=== PATIENT | female | born 1995 | race Caucasian/White ===

== ENCOUNTER 2016-08-07 20:45 | Emergency (ER) | payer BC ==
[~2016-08-07] VITALS: Ht 162.6 cm; Wt 69.9 kg
[~2016-08-07 20:45] MED LIST: AMPH15CA7 PO; AMPH1TAB58 PO; ONDA4TAB10 SL; TRAM-10 PO
[2016-08-07 21:16] VITALS: TEMP 36.7; Ht 162.6 cm; Wt 69.9 kg
[2016-08-07] MEDS ORDERED: ALBUT/IPRATROP 3MG/0.5MG NEB 3 ML VIAL INH STA (21:59)
[2016-08-07] MEDS ORDERED: CETIRIZINE HCL 10 MG TAB PO ONE (22:00)
[2016-08-07] MEDS ORDERED: ALBUTEROL HFA 8 GM INHALER INH ONE (22:00)
[2016-08-07 22:16] VITALS: O2SAT 99
[2016-08-07] MEDS ORDERED: PSEU30TA20 PO (22:18)
[2016-08-07] MEDS ORDERED: DOXY1TAB6 PO (22:18)
[2016-08-07] MEDS ORDERED: IBUP-1050 PO (22:18)
[2016-08-07] MEDS ORDERED: IUD'IUD INT UTER (22:18)
[2016-08-07] MEDS ORDERED: AMPH10TA2 PO (22:20)
[2016-08-07] MEDS ORDERED: CETI10CA PO (23:04)
[2016-08-07] MEDS ORDERED: PRED50TA PO (23:04)
[2016-08-07 23:09] VITALS: BP 131/82; PULSE 78; O2SAT 100
--- NOTE | 2016-08-08 03:20 | EMERGENCY ROOM VISIT NOTE ---
History First contact with patient: 21:40 Chief Complaint: COUGH Stated Complaint: WHEEZING,DIZZINESS,COUGHING Nursing Triage Summary: started with cough after running , hx of asthma, does not have inhaler at this time took sudafed at 1999 , now feels better History of Present Illness The patient is a 21 year old female who presents to the Emergency Room with complaints of cough and wheeze with postnasal drip and allergies for the past day. Patient has a history of asthma. Patient does not have her inhaler. She denies this allergy medicine but does not currently have any. Patient tried Sudafed with minimal improvement of symptoms. Patient denies productive cough, chest pain, dyspnea, fever, chills, sore throat, earache. She is tolerating by mouth fluids and food. Review of Systems See HPI for pertinent positives & negatives. A total of 10 systems reviewed and were otherwise negative. Past Medical/Surgical History Medical Problems: (1) Asthma (2) Hemochromatosis Surgical Problems: (1) History of wisdom tooth extraction Family History FH: cancer FH: diabetes mellitus FH: gallbladder disease Social History Smoking Status: Never Smoker Alcohol Use: occasionally Marital Status: single Occupation Status: [employer] student Current/Historical Medications Scheduled Amphetamine-Dextroamphetamine 10MG (Adderall 10MG), 10 MG PO DAILY Cetirizine Hcl (Zyrtec Allergy), 10 MG PO DAILY Doxycycline Hyclate (Doxycycline Hyclate), 1 TAB PO DAILY Iud's (Paragard Intrauterine Setter Induction Heating Equipment), INT UTER UD Ondasetron Odt (Zofran Odt), 4 MG SL Q6H Prednisone (Prednisone), 50 MG PO DAILY Pseudoephedrine (Sudafed), 30 MG PO PRN UD Scheduled PRN Ibuprofen (Advil), 400-600 MG PO Q6H PRN for Pain or Fever Allergies Coded Allergies: No Known Allergies (Unverified , 04/09/16) Physical Exam Vital Signs Date Time Temp Pulse Resp B/P Pulse Ox O2 Delivery O2 Flow Rate FiO2 08/07/16 23:09 78 18 131/82 100 08/07/16 22:16 99 Room Air 08/07/16 21:43 98 18 132/86 99 Room Air 08/07/16 21:16 36.7 92 18 126/84 98 Room Air Pain Rating (0-10): 0 Physical Exam PHYSICAL EXAM: Vital Signs: Reviewed Nurse's notes. Oxygen saturation was 98% on room air. GENERAL: Pleasant female Alert, oriented and coherent. The patient is able to speak in complete sentences. NECK: Supple, non-tender. CHEST : Symmetrical expansion. no retractions no accessory muscle use. HEART: Regular rate and normal heart sounds, no murmur, gallop or rub. LUNGS: Breath sounds equal but significantly diminished in intensity on both sides. Bilateral wheezes heard but no rales or pleuritic rub. SKIN: The skin was without rashes, erythema, edema, or bruising. There is no tenting of the skin. Capillary reflex less than 2 seconds. HEAD: Normocephalic atraumatic. EARS: External auditory canals clear, tympanic membranes pearly corrales without erythema or effusion bilaterally. EYES: Pupils equal round and reactive to light and accommodation. Conjunctivae without injection, sclerae without icterus. Extraocular movements intact. NOSE: Patent, turbinates without inflammation or discharge. No sinus tenderness. MOUTH: Mucous membranes moist. Tonsils are not enlarged. Pharynx without erythema or exudate. Uvula midline. Airway patent. Tongue does not deviate. ABDOMEN: Positive bowel sounds x 4. Normal tympanic percussion. Soft, nontender, without masses or organomegaly. Blanco sign negative. No guarding or rebound tenderness. MUSCULOSKELETAL: No muscle atrophy, erythema, or edema noted Normal gait. NEURO: Patient was alert and oriented to person place and time No focal neurological deficits. Medical Decision & Procedures Medications Administered Medications (Trade) Dose Ordered Sig/Monet Route Start Time Stop Time Status Last Admin Dose Admin Albuterol/ Ipratropium (Duoneb) 3 ml NOW STAT INH 08/07/16 21:59 08/07/16 22:01 DC 08/07/16 22:09 3 ML Prednisone (PredniSONE TAB) 60 mg NOW STAT PO 08/07/16 21:59 08/07/16 22:01 DC 08/07/16 21:59 60 MG Cetirizine HCl (zyrTEC TAB) 10 mg NOW ONCE PO 08/07/16 22:00 08/07/16 22:01 DC 08/07/16 22:00 10 MG Albuterol (Ventolin Hfa Inhaler) 2 puffs NOW ONCE INH 08/07/16 22:00 08/07/16 22:01 DC 08/07/16 22:09 2 PUFFS ED Course Prior records/ancillary studies reviewed. Triage Nursing notes reviewed. The patient's history was concerning for cough, wheezing and allergies. Differential diagnosis: Etiologies such as asthma exacerbation, seasonal allergies, postnasal drip, cardiac ischemia, pulmonary embolism, pneumonia, pneumothorax, musculoskeletal , infections, pericarditis, myocarditis, esophageal rupture, gastrointestinal, as well as others were entertained. Physical examination: As above. ER treatment provided: Nebulizer, steroids On reassessment the patient felt better. Diagnostic interpretation by me: deferred Exam and history seem consistent with asthma exacerbation with seasonal allergies. Patient was advised to start taking Zyrtec daily. She is advised to use her inhaler for coughing. She is advised follow-up health services in a few days or here in the ER sooner for chest pain, difficulty breathing, fevers, worsening signs or symptoms or as needed. Patient was neurovascularly and neurologically intact. She is well-appearing. Lungs are reassessed after being medicated were greatly improved. Patient felt much better and requested to leave. By the evaluation outlined above emergent etiologies such as cardiac ischemia, aortic dissection, pulmonary embolism, pneumonia, pneumothorax, infections, pericarditis, myocarditis, gastrointestinal, as well as others were deemed relatively unlikely. The pt informed about the findings as listed above. All questions were answered and pleased with the treatment. Return instructions were outlined and the patient was discharged in stable condition. Outpatient prescription management: prednisone, zyrtec Referral: The patient was referred back to primary care physician for follow-up in 2 to 3 days for a recheck of the current condition. Medical Decision As above Impression Primary Impression: Asthma exacerbation Additional Impression: Seasonal allergies Departure Information Dispostion Home / Self-Care Condition GOOD Prescriptions Cetirizine Hcl (ZYRTEC ALLERGY) 10 Mg Cap 10 MG PO DAILY for 30 Days, #30 CAP Prov: Arleen Howe PA-C 08/07/16 Prednisone (Prednisone) 50 Mg Tab 50 MG PO DAILY for 4 Days, #4 TAB Prov: Arleen Howe PA-C 08/07/16 Forms HOME CARE DOCUMENTATION FORM, School Instructions, Return To School: 1 day IMPORTANT VISIT INFORMATION Patient Instructions Asthma - [facility], [facility], ED Allergy Seasonal Additional Instructions Albuterol Inhaler: Take 2 puffs four times daily for five days, then as needed. Prednisone 50mg: Once daily until the prescription is finished. It is best to take this earlier in the day as some patients note occasional difficulty falling asleep when taken in the late evening. Zyrtec 10 mg: Take one tablet daily for allergies. Any medication can cause an allergic reaction, stop the pills immediately and return to the ER for rash, hives, breathing difficulties, or swelling. Acetaminophen(Tylenol) may be used for fever or pain. Use 1000mg every six hours as needed. Avoid using more than 3000mg in a 24 hour period. (AND/OR) Ibuprofen(Motrin, Advil) may be used for fever or pain. Use 600mg every six hours as needed. Take with food. Avoid using more than 2400mg in a 24 hour period. Do not use 2400mg per day for more than three consecutive days without physician direction. Prolonged inappropriate use can lead to stomach upset or ulcers. Rest and drink plenty of fluids. Avoid smoke/smoking, fumes, dust, or any triggers in the past that may have affected your breathing. Continue current medications. Return to the ER for chest pain, difficulty breathing, fevers, vomiting, worsening of your condition, or as needed. Follow up with your primary physician this week for a recheck of your current condition. School Instructions Return To School: 1 day Problem Qualifiers
== END 2016-08-07 23:10 | disposition home or self-care (01) ==
LOC: C.EDB 20:47 → C.EDC 23:10
DX: J45.901 Unspecified asthma with (acute) exacerbation (principal); J30.2 Other seasonal allergic rhinitis; E83.119 Hemochromatosis, unspecified; Z83.3 Family history of diabetes mellitus

== ENCOUNTER → 2017-04-24 | Day surgery (SDC) | payer OTHER ==
[2017-04-14 15:36] VITALS: Ht 162.6 cm; Wt 62.7 kg
--- NOTE | 2017-04-23 15:49 | History and Physical: Surg Cnt ---
History & Physical Date Apr 23, 2017. Chief Complaint sore throats History of Present Illness The patient is a 22 year old female with complaints of chronic tonsillitis Past Medical/Surgical History Medical Problems: (1) Asthma (2) Hemochromatosis Surgical Problems: (1) History of wisdom tooth extraction Additional History Hepatic Disease: No Endocrine Disorder: No Kidney Disease: No Hypertension: No Heart Disease: No Bleeding Tendencies: No Infectious Diseases: No Allergies Coded Allergies: No Known Allergies (Unverified , 04/09/16) Home Medications Scheduled Bupropion (Wellbutrin-Xl), 300 MG PO QAM Scheduled PRN Albuterol Hfa (Ventolin Hfa), 2-4 PUFFS INH Q6H PRN for Shortness of Breath Miscellaneous Medications Iud's (Paragard Intrauterine Street Vendor) Physical Examination Skin: warm/dry, no rash Eyes: normal inspection, EOMI, sclerae normal ENT: normal ENT inspection, pharynx normal Head: normocephalic, atraumatic Neck: supple, no adenopathy, trachea midline Respiratory/Chest: lungs clear, normal breath sounds, no respiratory distress Cardiovascular: regular rate, rhythm, no edema, no murmur Abdomen / GI: normal bowel sounds, non tender Back: normal inspection Extremities: normal inspection, normal range of motion Neurologic/Psych: no motor/sensory deficits, alert, normal reflexes, oriented x 3 Diagnosis chronic tonsillitis Plan of Treatment adenotonsillectomy
[~2017-04-24] VITALS: Ht 162.6 cm; Wt 62.7 kg
[~2017-04-24] MED LIST changes: +ACETAMINOPHEN 1000 MG/100 ML IV IV ONE; +ACETAMINOPHEN/HYDROCODONE ELIX 15 ML/CUP UDP PO PRN; -AMPH15CA7 PO; -AMPH1TAB58 PO; +ATROPINE SULFATE 0.1 MG/ML 5ML SYR IV PRN; +BUPIVACAINE/EPINEPHRINE 0.5% MPF 1:200,000 30 ML VIAL ONE; +BUPRTAB51 PO; +CHECK SCOPOLAMINE PATCH PLACEMENT SCH; +CLON1TAB4 PO; +DEXAMETHASONE SOD INJ 4 MG/ML VIAL ONE; +EpHEDrine SULFATE INJ 50 MG/ML AMP IV PRN; +FENTANYL CITRATE INJ 50 MCG/1 ML 2 ML VIAL IV PRN; +FENTANYL CITRATE INJ 50 MCG/1 ML 2 ML VIAL ONE; +FLUO40CA8 PO; +GLYCOPYRROLATE INJ 0.2 MG/ML VIAL ONE; +HYDROmorphone INJ 1 MG/ML SYR IV PRN; +IBUP-103 PO; +IUD'IUD INT UTER; +LACTATED RINGER'S 1000ML 1,000 ML IV SCH; +LIDOCAINE HCL 2% 2 ML VIAL (20MG/ML) ONE; +MIDAZOLAM HCL 1 MG/ML 2ML VIAL ONE; +NEOSTIGMINE METHYLSULFATE 5 MG/5 ML SYR ONE; -ONDA4TAB10 SL; +ONDA4TAB46 PO; +ONDANSETRON INJ 2 MG/ML 2 ML VIAL IV PRN; +ONDANSETRON INJ 2 MG/ML 2 ML VIAL ONE; +OXYC-57 PO; +PROMETHAZINE HCL INJ 12.5 MG in SODIUM CHLORIDE 0.9% 50ML 50 ML IV PRN; +PROPOFOL IV EMULSION 10 MG/ML 20 ML VIAL IV ONE; +SCOPOLAMINE 1.5 MG TDSY TD ONE; +SCOPOLAMINE 1.5 MG TDSY TD SCH; +SODIUM CHLORIDE 0.9% 1000ML 1,000 ML IV SCH; -TRAM-10 PO; +VNTHFA/IN INH
--- NOTE | 2017-04-24 06:50 | History & Physical Bridge Note ---
H&P Re-Evaluation Bridge Note: I have examined the patient, reviewed the History & Physical and in the interval since the performance of the History & Physical I have noted the following changes of clinical significance: No changes noted
--- NOTE | 2017-04-24 07:45 | [facility] Post Operative Brief Note ---
Immediate Operative Summary Operative Date Apr 24, 2017. Pre-Operative Diagnosis Chronic Tonsillitis Post-Operative Diagnosis Same Procedure(s) Performed Tonsillectomy And Adenoidectomy Surgeon Dr. Iverson Snap Attacher Surgeon(s) None Estimated Blood Loss 15 mL Findings tonsillitis Specimens A. Right Tonsil B. Left Tonsil Anesthesia GET Complication(s) None Disposition Recovery Room / PACU
--- NOTE | 2017-04-24 07:47 | Discharge Instructions-SurgCtr ---
Discharge Instructions Date of Service Apr 24, 2017. Visit Reason for Visit: Chronic Tonsillitis Discharge Discharge Diagnosis / Problem: same Discharge Goals Goal(s): Improve disease control Activity Recommendations Activity Limitations: per Instructions/Follow-up section Anesthesia . Post Anesthesia Instructions: If you have had General Anesthesia or IV Sedation: * Do not drive today. * Resume driving when surgeon permits. * Do not make important decisions or sign legal documents today. * Call surgeon for: 1. Temperature elevations greater than 101 degrees F. 2. Uncontrollable pain. 3. Excessive bleeding. 4. Persistent nausea and vomiting. 5. Medication intolerance (nausea, vomiting or rash). * For nausea and vomiting use only clear liquids such as: tea, soda, bouillon until nausea subsides, then gradually increase diet as tolerated. * If you have any concerns or questions, call your surgeon's office. If physician is unavailable and it is an emergency, call 911 or go to the nearest emergency room. . Instructions / Follow-Up Instructions / Follow-Up ACTIVITY RECOMMENDATIONS: * During the first few days, activities should be limited. * Stay indoors for several days. * After 48 hours, activity can gradually be increased to normal activity. RETURN TO SCHOOL/WORK: * Return to school or work in one week. * No physical education for two weeks. OVER THE COUNTER MEDICATIONS: * You may use Tylenol * Avoid aspirin or aspirin containing products, e.g. as they may increase bleeding. SPECIAL CARE INSTRUCTIONS: * Avoid coughing or clearing the throat. * Do not use a straw. * A sore throat is expected frequently accompanied by pain radiating to the ears. This is normal. * Expect bad breath until "scabs" are healed. * Notify the doctor if bleeding occurs, vomiting, temperature greater than 101 degrees Fahrenheit. Call or cell phone: . * If bleeding occurs, it is usually in the first 24 hours or after the 5th day. If unable to reach the doctor, go to the nearest Emergency Department. Special Diet: * Fluids are very important and should be encouraged to maintain adequate hydration. * To maintain nutrition, eat soft foods and after 48 hours the consistency of foods can be increased. Examples are jello, soup, pasta, ice cream and mashed foods. FOLLOW UP VISIT: Follow-up visit with Dr. Iverson in 2 weeks. Please call to schedule if not already scheduled. Diet Recommendations Home Diet: special diet Diet Texture: Mechanical Soft (ground) Procedures Procedures Performed: Tonsillectomy And Adenoidectomy Pending Studies Studies pending at discharge: no Medical Emergencies . Who to Call and When: Medical Emergencies: If at any time you feel your situation is an emergency, please call 911 immediately. . Non-Emergent Contact Non-Emergency issues call your: Primary Care Provider . . "Provider Documentation" section prepared by Fabiola Iverson. . [place] Drug Monitoring Program Search Results: no issues identified
[2017-04-24 08:51] VITALS: TEMP 36.8
--- NOTE | 2017-04-24 09:04 | Anesthesiology Progress Note ---
Anesthesia Post Op Note Date & Time Apr 24, 2017 at 09:04 Vital Signs Pain Intensity: 2.0 Vital Signs Past 12 Hours Date Time Temp Pulse Resp B/P (MAP) Pulse Ox O2 Delivery O2 Flow Rate FiO2 04/24/17 08:51 36.8 89 117/81 (93) 98 Room Air 04/24/17 08:26 37.1 97 20 118/79 99 Room Air 04/24/17 08:24 97 20 04/24/17 08:24 94 20 99 04/24/17 08:21 128/77 04/24/17 08:19 96 20 04/24/17 08:19 97 20 97 04/24/17 08:18 97 31 04/24/17 08:18 96 31 97 04/24/17 08:16 126/89 04/24/17 08:13 93 17 04/24/17 08:13 93 17 100 04/24/17 08:11 121/78 04/24/17 08:08 97 32 04/24/17 08:08 96 32 100 04/24/17 08:06 120/78 04/24/17 08:03 94 29 04/24/17 08:03 91 29 100 04/24/17 08:01 127/88 04/24/17 07:58 87 18 04/24/17 07:58 87 18 100 04/24/17 07:56 124/77 04/24/17 07:53 96 13 04/24/17 07:53 93 13 100 04/24/17 07:51 118/81 04/24/17 07:49 124/84 04/24/17 07:48 36.9 104 12 124/84 100 Humidified Oxygen 6 Mask 04/24/17 06:25 36.7 88 16 118/82 (94) 98 Room Air Notes Mental Status: alert / awake / arousable, participated in evaluation Pt Amnestic to Procedure: Yes Nausea / Vomiting: adequately controlled Pain: adequately controlled Airway Patency, RR, SpO2: stable & adequate BP & HR: stable & adequate Hydration State: stable & adequate Anesthetic Complications: no major complications apparent
[2017-04-24 09:27] VITALS: BP 128/84; PULSE 81; O2SAT 100
--- NOTE | 2017-04-24 10:04 | OPERATIVE REPORT ---
DATE OF OPERATION: 04/24/2017 PREOPERATIVE DIAGNOSIS: Chronic tonsillitis. Adenoid hypertrophy. POSTOPERATIVE DIAGNOSIS: Same. PROCEDURE: Adenotonsillectomy (coblation). SURGEON: Dr. Iverson. ANESTHESIA: General endotracheal. COMPLICATIONS: None. BLOOD LOSS: 20 mL. HISTORY OF PRESENT ILLNESS: A 22-year-old with significant recurrent chronic tonsillitis. OPERATION AND FINDINGS: PROCEDURE: The patient was brought to the operating room and placed in supine position. General endotracheal anesthesia was induced, draped in the usual manner. Mouth gag was placed. Peritonsillar area was injected with .5% Sensorcaine, 1:200:000 strength Epinephrine. Soft palate retracted using a red Simms catheter. Tonsillectomy performed using the coblation device coblating out the tonsil from anterior to the posterior pillar and from the superior pole to the inferior pole. Both tonsils were removed in a similar manner. Hemostasis was controlled with the coblation device. Adenoidectomy was performed using the coblation technique and hemostasis controlled using the coblation technique. The patient tolerated the procedure well and was taken to the recovery room in satisfactory condition. I attest to the content of the Intraoperative Record and any orders documented therein. Any exception s are noted below.
== END | disposition home or self-care (01) ==
LOC: X.SURG 06:12
PROVIDERS: ATTEND Otolaryngology
DX: J03.90 Acute tonsillitis, unspecified (principal); J35.2 Hypertrophy of adenoids; J45.909 Unspecified asthma, uncomplicated; Z98.818 Other dental procedure status; Z98.890 Other specified postprocedural states

== ENCOUNTER 2017-05-19 15:10 | Emergency (ER) | payer OTHER ==
[~2017-05-19] VITALS: Ht 161.3 cm; Wt 64.5 kg
[~2017-05-19 15:10] MED LIST changes: -ACETAMINOPHEN 1000 MG/100 ML IV IV ONE; -ACETAMINOPHEN/HYDROCODONE ELIX 15 ML/CUP UDP PO PRN; -ATROPINE SULFATE 0.1 MG/ML 5ML SYR IV PRN; -BUPIVACAINE/EPINEPHRINE 0.5% MPF 1:200,000 30 ML VIAL ONE; -BUPRTAB51 PO; -CHECK SCOPOLAMINE PATCH PLACEMENT SCH; -CLON1TAB4 PO; -DEXAMETHASONE SOD INJ 4 MG/ML VIAL ONE; -EpHEDrine SULFATE INJ 50 MG/ML AMP IV PRN; -FENTANYL CITRATE INJ 50 MCG/1 ML 2 ML VIAL IV PRN; -FENTANYL CITRATE INJ 50 MCG/1 ML 2 ML VIAL ONE; -FLUO40CA8 PO; -GLYCOPYRROLATE INJ 0.2 MG/ML VIAL ONE; -HYDROmorphone INJ 1 MG/ML SYR IV PRN; -IBUP-103 PO; -IUD'IUD INT UTER; -LACTATED RINGER'S 1000ML 1,000 ML IV SCH; -LIDOCAINE HCL 2% 2 ML VIAL (20MG/ML) ONE; -MIDAZOLAM HCL 1 MG/ML 2ML VIAL ONE; -NEOSTIGMINE METHYLSULFATE 5 MG/5 ML SYR ONE; -ONDA4TAB46 PO; -ONDANSETRON INJ 2 MG/ML 2 ML VIAL IV PRN; -ONDANSETRON INJ 2 MG/ML 2 ML VIAL ONE; -PROMETHAZINE HCL INJ 12.5 MG in SODIUM CHLORIDE 0.9% 50ML 50 ML IV PRN; -PROPOFOL IV EMULSION 10 MG/ML 20 ML VIAL IV ONE; -SCOPOLAMINE 1.5 MG TDSY TD ONE; -SCOPOLAMINE 1.5 MG TDSY TD SCH; -SODIUM CHLORIDE 0.9% 1000ML 1,000 ML IV SCH; -VNTHFA/IN INH
[2017-05-19 15:19] VITALS: TEMP 36.3; Ht 161.3 cm; Wt 64.5 kg
[2017-05-19] MEDS ORDERED: IUD'IUD INT UTER (15:36)
[2017-05-19] MEDS ORDERED: BUPRTAB51 PO (15:36)
[2017-05-19] MEDS ORDERED: VNTHFA/IN INH (15:39)
[2017-05-19] MEDS ORDERED: ACETAMINOPHEN 500 MG TAB PO STA (16:10)
[2017-05-19] MEDS ORDERED: TRAMADOL HCL 50 MG TAB PO STA (16:10)
[2017-05-19] MEDS ORDERED: IBUPROFEN 600 MG TAB PO STA (16:10)
[2017-05-19] MEDS ORDERED: IBUP-103 PO (16:42)
[2017-05-19] MEDS ORDERED: ONDANSETRON 4MG OD TAB PO STA (16:48)
--- NOTE | 2017-05-19 17:26 | EMERGENCY ROOM VISIT NOTE ---
History Report prepared by Ava: Jose Aguilera Under the Supervision of: Dr. Colton Marie M.D. First contact with patient: 15:46 Chief Complaint: BACK PAIN Stated Complaint: SHARP BACK AND STOMACH PAIN,NAUSEA,DIZZY,FAINT History of Present Illness The patient is a 22 year old white female with a past medical history of hemochromatosis, anxiety, depression, and UTI who presents to the ED with a cc of constant back pain beginning yesterday. Describes her pain as "sharp". She is on her menstrual period currently. Positive abdominal cramping, lightheadedness, chills, and nausea. Pain improved today from yesterday, but her back pain "spread". Had one episode today where her heart was racing, her body felt numb and she nearly passed out. The patient states that her symptoms feel consistent with her previous menstrual cramps, but more severe. She has had a normal amount of bleeding with her current menstrual cycle. Negative vomiting or fevers. She follows up with her PCP about her hemochromatosis. No blood thinning medications. Patient had her tonsils removed four weeks ago. No smoking. Occasional alcohol use. Source of History: patient Onset: Yesterday Position: back Quality: sharp Timing: constant Associated Symptoms: + chills, + nausea, + abdominal pain ("cramping"), No fevers, No vomiting Note: Additional symptoms: lightheadedness. Review of Systems See HPI for pertinent positives and negatives. A total of ten systems were reviewed and were otherwise negative. Past Medical & Surgical Medical Problems: (1) Anxiety (2) Asthma (3) Depression (4) Hemochromatosis Surgical Problems: (1) History of wisdom tooth extraction Family History FH: cancer FH: diabetes mellitus FH: gallbladder disease Social History Smoking Status: Never Smoker Alcohol Use: occasionally Marital Status: single Occupation Status: [employer] Current/Historical Medications Scheduled Bupropion (Wellbutrin-Xl), 300 MG PO QAM Iud's (Paragard Intrauterine Interlocker Maintainer), 1 EA INT UTER UD Scheduled PRN Albuterol Hfa (Ventolin Hfa), 2 PUFFS INH Q6H PRN for Shortness of Breath Ibuprofen Tab (Advil), 400-600 MG PO Q6H PRN for Pain Ondansetron Hcl (Zofran), 4 MG PO Q8H PRN for Nausea Allergies Coded Allergies: No Known Allergies (Unverified , 05/19/17) Physical Exam Vital Signs Date Time Temp Pulse Resp B/P (MAP) Pulse Ox O2 Delivery O2 Flow Rate FiO2 05/19/17 19:04 75 18 125/68 98 05/19/17 17:57 77 18 128/70 98 Room Air 05/19/17 15:19 36.3 73 18 143/92 99 Room Air Physical Exam GENERAL: Awake, alert, well-appearing, NAD HENT: Normocephalic, atraumatic. EYES: Normal conjunctiva. Sclera non-icteric. NECK: Supple. No nuchal rigidity. FROM. RESPIRATORY: CTAB, no rhonchi, wheezing, crackles CARDIAC: RRR, no MRG ABDOMEN: Soft, ND, BS+. Suprapubic discomfort. Left sided CVA TTP. Negative obturators or psoas. No saddle anesthesia. MSK: No chest wall TTP, no LE edema NEURO: GCS 15, CN 2-12 intact, moves all 4s on command SKIN: No rash or jaundice noted. Medical Decision & Procedures ER Provider Diagnostic Interpretation: Radiology results as stated below per my review and radiologist interpretation: ABDOMEN AND PELVIS CT WITHOUT CONTRAST CT DOSE: 666.14 mGy.cm HISTORY: blood in urine, L sided flank pain TECHNIQUE: Multiaxial CT images of the abdomen and pelvis were performed without the use of intravenous and oral contrast according to the standard department stone protocol. A dose lowering technique was utilized adhering to the principles of ALARA. COMPARISON STUDY: None. FINDINGS: The lung bases are clear. The unenhanced liver, gallbladder, spleen, pancreas, and adrenal glands are unremarkable. No renal stones or hydronephrosis. No bowel wall thickening or obstruction. The visualized appendix is unremarkable. An intrauterine device is in good position. Normal bladder. There are few sigmoid diverticula. No suspicious lytic or blastic osseous lesions. IMPRESSION: 1. No renal or ureteral calculi. No hydronephrosis. 2. No definite bowel wall thickening or obstruction. 3. The visualized appendix is within normal limits. Electronically signed by: Brigido Lambert M.D. 05/19/2017 6:11 PM Dictated Date/Time: 05/19/2017 6:04 PM Laboratory Results 05/19/17 17:54 Red Blood Count 4.49, Mean Corpuscular Volume 86.0, Mean Corpuscular Hemoglobin 29.6, Mean Corpuscular Hemoglobin Concent 34.5, Mean Platelet Volume 10.4, Neutrophils (%) (Auto) 49.3, Lymphocytes (%) (Auto) 39.1, Monocytes (%) (Auto) 8.1, Eosinophils (%) (Auto) 2.9, Basophils (%) (Auto) 0.3, Neutrophils # (Auto) 3.80, Lymphocytes # (Auto) 3.01, Monocytes # (Auto) 0.62, Eosinophils # (Auto) 0.22, Basophils # (Auto) 0.02 05/19/17 17:54 Test 05/19/17 15:57 05/19/17 17:54 Urine Color YELLOW Urine Appearance CLEAR (CLEAR) Urine pH 5.0 (4.5-7.5) Urine Specific [place] 1.012 (1.000-1.030) Urine Protein NEG (NEG) Urine Glucose (UA) NEG (NEG) Urine Ketones NEG (NEG) Urine Occult Blood 3+ (NEG) Urine Nitrite NEG (NEG) Urine Bilirubin NEG (NEG) Urine Urobilinogen NEG (NEG) Urine Leukocyte Esterase TRACE (NEG) Urine WBC (Auto) 1-5 /hpf (0-5) Urine RBC (Auto) 5-10 /hpf (0-4) Urine Hyaline Casts (Auto) 0 /lpf (0-5) Urine Epithelial Cells (Auto) 0-5 /lpf (0-5) Urine Bacteria (Auto) NEG (NEG) Urine Test NEG (NEG) White Blood Count 7.69 K/uL (4.8-10.8) Red Blood Count 4.49 M/uL (4.2-5.4) Hemoglobin 13.3 g/dL (12.0-16.0) Hematocrit 38.6 % (37-47) Mean Corpuscular Volume 86.0 fL (80-100) Mean Corpuscular Hemoglobin 29.6 pg (25-34) Mean Corpuscular Hemoglobin Concent 34.5 g/dl (32-36) Platelet Count 300 K/uL (130-400) Mean Platelet Volume 10.4 fL (7.4-10.4) Neutrophils (%) (Auto) 49.3 % Lymphocytes (%) (Auto) 39.1 % Monocytes (%) (Auto) 8.1 % Eosinophils (%) (Auto) 2.9 % Basophils (%) (Auto) 0.3 % Neutrophils # (Auto) 3.80 K/uL (1.4-6.5) Lymphocytes # (Auto) 3.01 K/uL (1.2-3.4) Monocytes # (Auto) 0.62 K/uL (0.11-0.59) Eosinophils # (Auto) 0.22 K/uL (0-0.5) Basophils # (Auto) 0.02 K/uL (0-0.2) RDW Standard Deviation 41.3 fL (36.4-46.3) RDW Coefficient of Variation 13.2 % (11.5-14.5) Immature Granulocyte % (Auto) 0.3 % Immature Granulocyte # (Auto) 0.02 K/uL (0.00-0.02) Anion Gap 8.0 mmol/L (3-11) Est Creatinine Clear Calc Drug Dose 208.7 ml/min Estimated GFR () > 150.0 Estimated GFR (Non- > 150.0 BUN/Creatinine Ratio 21.6 (10-20) Calcium Level 8.5 mg/dl (8.5-10.1) Laboratory results reviewed by me Medications Administered Medications (Trade) Dose Ordered Sig/Monet Route Start Time Stop Time Status Last Admin Dose Admin Ibuprofen (Motrin Tab) 800 mg NOW STAT PO 05/19/17 16:10 05/19/17 16:12 DC 05/19/17 16:23 800 MG Acetaminophen (Tylenol Tab) 1,000 mg NOW STAT PO 05/19/17 16:10 05/19/17 16:12 DC 05/19/17 16:24 1,000 MG Tramadol HCl (Ultram Tab) 50 mg NOW STAT PO 05/19/17 16:10 05/19/17 16:12 DC 05/19/17 16:24 50 MG Ondansetron HCl (Zofran Odt) 4 mg ONE STAT PO 05/19/17 16:48 05/19/17 16:54 DC 05/19/17 17:01 4 MG ED Course 1602: The patient was evaluated in room C3. A complete history and physical exam was performed. 1500: Patient re-evaluated. Told would obtain CT to r/o stone. Labs drawn. 1610: Patient informed of findings. Explained of d/c, f/u, and return precautions. Medical Decision The patient is a 22 year old white female with a past medical history of hemochromatosis, anxiety, depression, and UTI who presents to the ED with a cc of constant back pain beginning yesterday. Differential diagnosis: Etiologies such as musculoskeletal, disc herniation, fracture, aortic disease, metastatic disease, cord compression, discitis, infection, renal colic, gastrointestinal, acute exacerbation of chronic back pain, sciatica, cauda equina, as well as others were entertained. Patient was seen and evaluated at the bedside. Patient was complaining of some left-sided back pain and discomfort. Patient noted that she had some nausea but without vomiting. does state she is on her menstrual period and believes she was having some menstrual cramping. Patient is not taking anything for pain. On exam the patient does have some left-sided CVA tenderness palpation as well as some suprapubic discomfort. Patient had negative obturators so as. We did discuss that we would initially get a urinalysis and that if that should infection we will treat for presumptive pyelo -as an outpatient given her stable vital signs and lack of fever. Patient did have blood and RBCs in the urine without any acute infection. Given this is likely may be related to kidney stone. Patient was subsequently ordered a CT noncontrast look for stone in addition to CBC and BMP. CT negative acute. Appendix WNL. No stones identified. Blood in urine likely contaminant from menstrual period. CBC neg acute. WBC WNL. H/H normal. Renal function normal. Patient likely suffering from dysmenorrhea. Patient advised NSAIDs and tylenol around clock. Rx for Zofran as needed. Told to follow up with industrial painter and PCP at [facility] as needed. Given f/u, d/c, and return precautions and patient d/c'ed to home. Medication Reconcilliation Current Medication List: was personally reviewed by me Blood Pressure Screening Patient's blood pressure: Elevated blood pressure Blood pressure disposition: Elevated BP felt to be situational Impression Primary Impression: Dysmenorrhea Additional Impression: Flank pain Scribe Attestation The scribe's documentation has been prepared under my direction and personally reviewed by me in its entirety. I confirm that the note above accurately reflects all work, treatment, procedures, and medical decision making performed by me. Departure Information Dispostion Home / Self-Care Prescriptions Ondansetron Hcl (ZOFRAN) 4 Mg Tab 4 MG PO Q8H Y for Nausea, #12 TAB Prov: Colton Marie M.D. 05/19/17 Referrals No Doctor, Assigned (PCP) Patient Instructions ED Cramping Menstrual, ED Nausea Vomiting, My [facility] Additional Instructions Please return to the emergency department if you have worsening or recurrent symptoms not amenable to at-home treatment. Please call for a follow-up appointment with her primary care physician. Please take your medications as prescribed. If you have other concerns and/or complaints please feel free to also call your primary care physician's office or return the ED for further evaluation, management, and treatment. You may take 600 mg Ibuprofen every 6 hours as needed for pain with food for no more than 2 consecutive days. You may take tylenol 1000 mg every 6 hours as needed for pain. You may take motrin and tylenol separately or at the same time. Take your medications as prescribed. If taking an antibiotic consider taking a probiotic and/or eating yogurt, but at the least, please take with food as it can cause upset stomach. If culture results are not available at discharge, if they are positive for concern of infection, you will be informed of the results as soon as they are available. If you were seen between 11pm and 7AM all radiology reads will be re-read by our in house staff. If any major discrepancies are discovered, you will be notified. You have been examined and treated today on an emergency basis only. This is not a substitute for, or an effort to provide, complete comprehensive medical care. It is impossible to recognize and treat all injuries or illnesses in a single emergency department visit. It is therefore important that you follow up closely with [facility], your PCP, and/or your specialist(s). Call as soon as possible for an appointment. Thank you for your time and consideration. I look forward to speaking with you again soon. Please don't hesitate to call us if you have any questions. Problem Qualifiers
[2017-05-19 18:10] LABS: BASO % 0.3 %; BASO ABS # 0.02 K/uL (0-0.2); EOS % 2.9 %; EOS ABS # 0.22 K/uL (0-0.5); HEMATOCRIT 38.6 % (37-47); HEMOGLOBIN 13.3 g/dL (12.0-16.0); IG# 0.02 K/uL (0.00-0.02); LYMPH % 39.1 %; LYMPH ABS # 3.01 K/uL (1.2-3.4); MEAN CORPUSCULAR HEMOGLOBIN 29.6 pg (25-34); MEAN CORPUSCULAR HGB CONC 34.5 g/dl (32-36); MEAN PLATELET VOLUME 10.4 fL (7.4-10.4); MONO % 8.1 %; MONO ABS # 0.62 K/uL (0.11-0.59); NEUT % 49.3 %; PLATELET COUNT 300 K/uL (130-400); RED CELL DISTRIBUTION WIDTH CV 13.2 % (11.5-14.5); RED CELL DISTRIBUTION WIDTH SD 41.3 fL (36.4-46.3); WHITE BLOOD COUNT 7.69 K/uL (4.8-10.8)
--- NOTE | 2017-05-19 18:12 | DIAGNOSTIC IMAGING REPORT ---
ABDOMEN AND PELVIS CT WITHOUT CONTRAST CT DOSE: 666.14 mGy.cm HISTORY: blood in urine, L sided flank pain TECHNIQUE: Multiaxial CT images of the abdomen and pelvis were performed without the use of intravenous and oral contrast according to the standard department stone protocol. A dose lowering technique was utilized adhering to the principles of ALARA. COMPARISON STUDY: None. FINDINGS: The lung bases are clear. The unenhanced liver, gallbladder, spleen, pancreas, and adrenal glands are unremarkable. No renal stones or hydronephrosis. No bowel wall thickening or obstruction. The visualized appendix is unremarkable. An intrauterine device is in good position. Normal bladder. There are few sigmoid diverticula. No suspicious lytic or blastic osseous lesions. IMPRESSION: 1. No renal or ureteral calculi. No hydronephrosis. 2. No definite bowel wall thickening or obstruction. 3. The visualized appendix is within normal limits. Electronically signed by: Brigido Lambert M.D. 05/19/2017 6:11 PM Dictated Date/Time: 05/19/2017 6:04 PM
[2017-05-19 18:34] LABS: BLOOD UREA NITROGEN 8 mg/dl (7-18); CALCIUM 8.5 mg/dl (8.5-10.1); CARBON DIOXIDE 24 mmol/L (21-32); CREATININE 0.39 mg/dl (0.60-1.20); GLUCOSE 87 mg/dl (70-99); POTASSIUM 3.7 mmol/L (3.5-5.1); SODIUM 141 mmol/L (136-145)
[2017-05-19] MEDS ORDERED: ONDA4TAB46 PO (18:34)
[2017-05-19 19:04] VITALS: BP 125/68; PULSE 75; O2SAT 98
== END 2017-05-19 19:05 | disposition home or self-care (01) ==
LOC: C.EDB 15:15 → C.EDC 19:05
DX: N94.6 Dysmenorrhea, unspecified (principal); R10.30 Lower abdominal pain, unspecified; R10.10 Upper abdominal pain, unspecified; M54.9 Dorsalgia, unspecified; E83.119 Hemochromatosis, unspecified; F41.9 Anxiety disorder, unspecified; F32.9 Major depressive disorder, single episode, unspecified; J45.909 Unspecified asthma, uncomplicated; Z83.3 Family history of diabetes mellitus